=== PATIENT | male | born 1960 | race Caucasian/White ===

== ENCOUNTER 2017-10-22 08:45 | Day surgery (SDC) | payer OTHER, SELFPAY ==
[2017-10-22] VITALS (8 sets, daily range): BP systolic 125–144; BP diastolic 82–101; PULSE 71–83; RESP 12–18; TEMP 36.2–36.8; O2SAT 94–100; BMI 26.6
--- NOTE | 2017-10-22 11:24 | PM.PREOP ---
Pre-operative Note Interval Note Pre-op Check: Yes History & Physical Reviewed by Physician and Yes Exam Performed Changes: No
--- NOTE | 2017-10-22 11:26 | SUR.PREOP ---
Block start time 1120 . Monitoring initiated and maintained throughout procedure. Oxygen and medications given per anesthesiologist instructions. Patient remained stable throughout procedure, no adverse reactions noted. Block end time [].
--- NOTE | 2017-10-22 11:35 | SUR.PREOP ---
Block start time 1120. Monitoring initiated and maintained throughout procedure. Oxygen and medications given per anesthesiologist instructions. Patient remained stable throughout procedure, no adverse reactions noted. Block end time 1135.
[2017-10-22] MEDS: LACTATED RINGERS 1,000 ML 42 ML IV (11:38)
[2017-10-22] MEDS: CEFAZOLIN 2 GM/100 ML FROZ.PIGGY IV (11:44)
--- NOTE | 2017-10-22 12:16 | SUR.OPER ---
Beach chair on padded OR bed. Head on gel donut secured with tape over gauze. Non-operative arm secured <90 degrees abduction on padded arm board. Pillow under knees. Safety belt at thigh. Cloth tape over blanket over lower legs.
[2017-10-22] MEDS: BUPIVACAINE 0.5% W/ EPI (PF) VIAL 30 ML INJ (12:25)
--- NOTE | 2017-10-22 12:32 | PM.PROC.1 ---
Procedures Date/Time Date of procedure: 10/22/17 Time of procedure: 11:25 General Procedure description: Ultrasound guided interscalene brachial plexus nerve block for post op pain control after right shoulder by Dr. Ford. Risk and benefits of procedure discussed with patient. ASA monitoring applied to patient. O2 given via nasal cannula. 2 mg Versed and 50 mcg fentanyl given for procedural sedation. Skin site was prepped with chlorhexidine and allowed to fully dry. Sterile gloves, mask, hat and probe cover were used to maintain sterility. 2% lidocaine and 30ga needle was used to make a small skin wheal at needle insertion site. Under ultrasound guidance, a 21ga 50mm Pajunk needle was directed into the interscalene groove (middle/anterior scalenes) near the brachial plexus. Patient reported no parasthesias. After negative aspiration, 20 mL 0.5% ropivicaine and 10mg dexamethasone were injected around brachial plexus. Patient tolerated procedure well.
--- NOTE | 2017-10-22 13:10 | P.OP_ITS ---
Operative Date/Time/Diagnoses Date of procedure: 10/22/17 Time of procedure: 12:45 Post-op diagnosis: same Procedure & Clinicians Procedure: 1. Open rotator cuff repair of right shoulder with acromioplasty 2. Open biceps tenodesis in the intertubercular groove Same procedure as scheduled: Yes Indications: The patient is a 57-year-old man was had right shoulder pain with evidence of a subscapularis rupture and partial dislocation of the biceps from the intertubercular groove. He has agreed to open repair of these injuries after discussion the risks benefits and alternatives. Risks discussed included but were not limited to: Failure to improve pain or function, stiffness, infection, nerve damage, deep venous thrombosis, pulmonary embolism, stroke, myocardial infarction, permanent paralysis and . Surgeon: Joe Ford Pressure Dispatcher: Adriana Rowe Click Yes if Unassisted: No Anesthesia Type: General, Peripheral nerve block and Local Operative Notes Findings: Tearing of the upper half of the subscapularis tendon with dislocation of the biceps from the intertubercular groove. The supraspinatus did not appear to have significant tendon damage. Closure Type: primary Specimen(s): none sent Implants & Drains: One Mitek Healix BR 5.5 mm anchor Applied: implant(s) Estimated Blood Loss (mL): 10 Blood products transfused: none Procedure in detail: Patient was seen in the preoperative area where he identified his right shoulder as the operative site this was marked with my initials. He received preoperative antibiotics and underwent an interscalene block for postoperative pain control. He was then taken to the operating room placed on the operating room table in supine position where he underwent induction of a general anesthetic. He was repositioned in the ?beach chair? position and a bump was placed to protracted scapula. All pressure points were well padded and care was taken not to hyperextend the neck or the cause traction on the sciatic nerves. The right arm was prepared with fingertips to the base and neck with ChloraPrep in the usual fashion drape through sterile drapes. The subcutaneous landmarks were outlined on the skin with a marking pen. Incision site was selected and this area was infiltrated with 0.5% Marcaine with epinephrine for pain control and hemostasis. Subcutaneous flaps were raised after the incision. I measured from the tip of the acromion 5 cm distally and placed a suture in the anterior raphe of the deltoid to prevent propagation into the axillary nerve. The deltoid was then split in line with its fibers. An acromioplasty was performed due to the type 2 acromion with lateral down slope that was evident. The intertubercular groove was palpated and opened, carrying this into the rotator interval. The biceps tendon was identified and brought back into the groove. It was amputated from its insertion on the supraglenoid tubercle and tenodesed over the remaining subscapularis tendon by suturing it to the surrounding tissue and itself with # 2 Tycron. The upper portion of the lesser tuberosity was then debrided to bleeding bone. I carefully inspected the leading edge of the supraspinatus and there did not appear to be enough separation to merit repair. A suture anchor was placed in the upper edge of the lesser tuberosity and the sutures from this placed through the subscapularis tendon to advance it to its insertion. The subscapularis was also sutured to the leading edge of the supraspinatus to close the rotator interval using a#2 Tycron. At this point the wound was copiously irrigated. The deltoid split was reapproximated using running and interrupted 0 Vicryl. Subcutaneous layer was closed with interrupted 3 O Vicryl the skin with a running 4 0 Monocryl suture and Steri-Strips. Dressing sterile 4x4s, an ABD and adhesive dressing were applied. Patient's arm was placed in a sling and he was transferred to the recovery room in good condition having tolerated the procedure well. Complications: none Condition: stable Disposition: PACU Plan for aftercare: The patient will be maintained on a standard subscapularis repair protocol. Initially he will be limited to keeping his hand in front of his body with passive range of motion only. At 6 weeks he will be advanced to active range of motion. His range of motion parameters will be advanced according to protocol through physical therapy.
--- NOTE | 2017-10-22 13:32 | SUR.PHASEI ---
stable pacu stay, to room 202
--- NOTE | 2017-10-22 13:32 | SUR.PHASEI ---
Addendum entered by Jennifer Wilson R.N. 10/22/17 13:33: dr darron sanderson. Original Note: small skin tear to l upper cheek. bacitracin applied.
--- NOTE | 2017-10-22 15:51 | PT.IIE ---
Current Diagnoses Complete rotator cuff tear or rupture of right shoulder, not specified as traumatic (10/22/17) Bicipital tendinitis, right shoulder (10/22/17) Surgery Performed Operation Date: 10/22/17 10:45 Actual Procedures p Rotator Cuff Repair w/Acromioplasty- Open(Right) - Joe Ford MD s Biceps Tendon Repair, , with right biceps tenodesis(Right) - Joe Ford MD Medical History (Last Updated 10/14/17 @ 14:16 by Laura Mobley RN) Biceps tendinitis of right upper extremity (Acute) Complete tear of right rotator cuff (Acute) History of headache (Acute) Surgery, elective (Acute) Physical Therapy Inpatient Evaluation/Re-Eval M1 PT/OT-IP Prior Functional Status Start: 10/22/17 15:52 Freq: NEEDED Status: Active Protocol: Document 10/22/17 15:51 DLM (Rec: 10/22/17 16:13 DLM [email or web address]) Medical Review Prior Functional Status Medical History Reviewed Yes Diet/Fluid Consistency Regular Communication WNL Mobility and Gait Independent without device, community distances Activities of Daily Living and IADL's Independent, works active, rides motorcycle Social History Household Members spouse Living Arrangements House Employment Status [employer] Temporary Additional Social History Comment Son is present in room, he had rototor cuff repair in the past and plans to help his father, out-pt PT is planned M2 PT-IP Current Condition Start: 10/22/17 15:52 Freq: NEEDED Status: Active Protocol: Document 10/22/17 15:51 DLM (Rec: 10/22/17 16:13 DLM [email or web address]) Physical Therapy Current Condition Current Condition Evaluation Date 10/22/17 Treatment Diagnosis right rotator cuff tear with open repair Onset Date 10/22/17 Precautions Shoulder Precautions Sling PROM Internal Rotation to Body No External Rotation No Abduction Forward Flexion to 90 degrees Pendulums Weight Bearing Status Weight Bearing Status Non-Weight Bearing M3 PT-IP Subjective Start: 10/22/17 15:52 Freq: NEEDED Status: Active Protocol: Document 10/22/17 15:51 DLM (Rec: 10/22/17 16:13 DLM [email or web address]) Subjective Physical Therapy Visit Type Type Initial Evaluation Visit Start Time 15:25 Visit Stop Time 15:51 Total Visit Minutes 26 Number of MEMORIAL DESIGNER Visits 0 Physical Therapy Visit Comments Patient Comments He is eager to go home, he has ice pack at home Therapy Pain Assessment Pain When Pain Assessed At Rest Pain Present Pain Present Denied Pain M4 PT-IP Mobility and Gait Start: 10/22/17 15:52 Freq: NEEDED Status: Active Protocol: Document 10/22/17 15:51 DL (Rec: 10/22/17 16:13 DLM [email or web address]) PT-Bed Mobility Assessment Rolling Type of Rolling Roll to Right Level of Assist Independent Supine to Sit Supine to Sit Independent Sit to Supine Sit to Supine Independent Scooting Scooting to Edge of Bed Independent PT-Transfer Assessment Sit to and From Stand Sit to and from Stand Independent Equipment Transfer Assistive Device None Orthotic/Prosthetic Devices or Brace: Yes Transfers Transfer Destination Chair Transfer Technique Stand Step Pivot Transfer Ability Level of Assist Independent Gait Assessment Gait Gait Assistance Required: Independent Distance (Feet) (feet) 300 Assistive Devices Assistive Device None Orthotic/Prosthetic Devices or Brace: Yes Gait Deviations General Gait Pattern Within Normal Limits Comments Gait Comments good balance during gait, no light-headedness and no nausea PT-Balance Assessment Sitting Balance and Reactions Static Sitting Balance Ability Normal Dynamic Sitting Balance Ability Normal Standing Balance and Reactions Static Standing Balance Ability Normal Dynamic Standing Balance Ability Good M5 PT-IP Objective Assessments Start: 10/22/17 15:52 Freq: NEEDED Status: Active Protocol: Document 10/22/17 15:51 DLM (Rec: 10/22/17 16:13 DL [email or web address]) Orientation Orientation/Cognition Level of Alertness Alert Orientation Name Age Birthday Month Date Year Day of Week Place Situation Language Function Ability No Deficits Noted Safety Awareness Understands Safety Issues Memory Description No Deficits Noted Gross Range of Motion Upper Extremity ROM Assessment Right Impaired Impairments post-op restictions with pt in sling and UE numb Lower Extremity ROM Assessment Within Functional Limits Strength Upper Extremity Strength Assessment Right Impaired Shoulder no functional use of shoulder post-op with restrictions Elbow no active movement at this time, numb Wrist numb Hand moving hand actively Lower Extremity Strength Assessment Within Functional Limits Coordination Assessment Gross Coordination Gross Coordination WNL Assessment Coordination Comments right UE not tested due to post-op restrictions Sensation Assessment Sensation Gross Sensation Right UE Impaired Light Touch Absent Sensation Description Numbness Comments Sensation Comments post-op with block M6 PT-IP Treatment Start: 10/22/17 15:52 Freq: NEEDED Status: Active Protocol: Document 10/22/17 15:51 DLM (Rec: 10/22/17 16:13 DLM [email or web address]) Physical Therapy Treatment Exercises Exercises Shoulder Pendulums Shoulder Flexion Elbow Flexion/Extension Wrist ROM Hand ROM Other Treatments Other Treatment Performed educated pt and family in all above exercises, pt only performed active hand motions since his UE is still numb, demonstrated all exercises and educated him in his precautions, his Son is present and reports familiar with exercises due to his own rotator cuff sx M7 PT-IP Assessment and Plan Start: 10/22/17 15:52 Freq: NEEDED Status: Active Protocol: Document 10/22/17 15:51 DLM (Rec: 10/22/17 16:13 DLM [email or web address]) PT Summary Assessment and Plan Potential Rehabilitation Potential Excellent Status of Condition at Evaluation Evolving Summary Impairments Pain ROM Strength Progress Towards Goals Safe For Discharge Assessment Summary He tolerated mobility well this visit. He is independent with his gait (no nausea and no light-headedness) Frequency of Treatment Frequency Of Treatment Discharge Treatment Plan Other Recommendations and Next Treatment safe to discharge home today Focus Recommendations To Nursing Amount of Assist Needed Standby Assistance Discharge Recommendations PT Discharge Recommendations Home with Assistance Outpatient PT
--- NOTE | 2017-10-22 17:01 | PC.NURSE ---
DISCHARGE A&Ox3, modified independent with ADLs. pt states slight numbness to fingertips. Denies any pain. RUE in sling. surgical dressing intact. d/c home per Dr. Ford. d/c instructions reviewed with pt and pt's family. pt walked off unit with OUTPATIENT PROGRAM COORDINATOR escort at approximately 1655.
== END 2017-10-22 17:00 | disposition home or self-care (01) ==
LOC: OR 08:49 → AC 13:29
PROVIDERS: PCP Family Medicine; Visit Provider Orthopaedic Surgery
PROC: (CPT 23430; principal; 2017-10-22 10:45)
PROC: (CPT 24341; 2017-10-22 10:45)
DX: M75.121 Complete rotator cuff tear or rupture of right shoulder, not specified as traumatic (principal); M75.21 Bicipital tendinitis, right shoulder; G89.18 Other acute postprocedural pain
CPT/HCPCS: 23430; 23420; 64450; 97161; J0690; J1100; J2250; J2405; J2704; J2795; J3010

== ENCOUNTER 2023-01-08 12:05 | Observation (INO) | payer OTHER, SELFPAY ==
[2017-10-22 13:55] VITALS: BMI 26.6
[2023-01-08] VITALS (14 sets, daily range): BP systolic 120–154; BP diastolic 72–95; PULSE 66–75; RESP 17–24; TEMP 36.1–36.4; O2SAT 92–97; BMI 26.7
--- NOTE | 2023-01-08 12:10 | DI.RAD.S_ITS ---
PROCEDURE: XR CHEST 1V INDICATIONS: chest pain TECHNIQUE: One view of the chest was acquired. COMPARISON: None. FINDINGS: Surgical changes and devices: None. Lungs and pleura: Lungs are clear. No pleural effusions or pneumothorax. Mediastinum: Mediastinal contours appear normal. Heart size is normal. Bones and chest wall: No suspicious bony lesions. Overlying soft tissues appear unremarkable. IMPRESSION: No acute cardiopulmonary process. Dictated by: Tashi Butts M.D. on 01/08/2023 at 13:01 Approved by: Tashi Butts M.D. on 01/08/2023 at 13:01
--- NOTE | 2023-01-08 12:20 | ED.CHESTPAIN ---
HPI - Chest Pain <Shahana Sandoval PA-C - Last Filed: 01/08/23 19:52> General Chief Complaint: Chest Pain Stated Complaint: Chest pain/ Dr ref/ has EKG copy with HX Time Seen by Provider: 01/08/23 12:20 Source: patient Mode of arrival: Family Vehicle Limitations: no limitations History of Present Illness HPI narrative: 62-year-old male with a history of diabetes controlled by metformin with currently normal A1c as well as hypertension per his presents with concern for left-sided chest pain. Patient states that his symptoms initially began yesterday evening and were still present when he went to sleep. At that time he was having some left-sided burning type chest pain that was a 4 or 5/10. He states it feels different than his acid reflux symptoms which he has had in the past. He states he was able to go to sleep and when he woke up in the morning he felt fine so he went to work as usual. However after arriving at work around 730 this morning he realize the pain was coming back and it has been constant ever since. He describes it as a 6/10 constant burning chest pain just to the left of his sternum. He does not feel that anything makes it better or worse. He denies any shortness of breath, shortness of breath with exertion, recent weight gain, nausea, vomiting, abdominal pain, back pain, dizziness, lightheadedness, pain with coughing or breathing and also denies any recent illness. Per his he has a family history of a brother who at age 52 of a cardiac problem. The patient himself has no known heart problems but states he did have a normal stress test at 1 time after he was found to have a murmur. Patient denies any other complaints or concerns he states he was seen in the walk-in clinic at would be where they gave him 324 of aspirin and he then elected to come to this hospital POV though they recommended an ambulance. Related Data Home Medications Medication Instructions Recorded Confirmed losartan 100 mg tablet 100 mg PO DAILY 01/08/23 01/08/23 metformin 500 mg tablet 500 mg PO BID 01/08/23 01/08/23 Allergies Allergy/AdvReac Type Severity Reaction Status Date / Time codeine AdvReac Vomiting Verified 01/08/23 12:20 Review of Systems <Shahana Sandoval PA-C - Last Filed: 01/08/23 19:52> Review of Systems Narrative: See HPI Patient History <Shahana Sandoval PA-C - Last Filed: 01/08/23 19:52> Medical History (Updated 01/08/23 @ 18:06 by Obi Arita DO) DM2 (diabetes mellitus, type 2) HTN (hypertension) History of headache Surgery, elective Biceps tendinitis of right upper extremity Complete tear of right rotator cuff Surgical History H/O shoulder surgery Social History household members: spouse Smoking Status: Former smoker alcohol intake: current Smoking Status: Former smoker tobacco type: cigarettes alcohol intake frequency: 0-2 drinks per day Substance Use Type: does not use Exam <Shahana Sandoval PA-C - Last Filed: 01/08/23 19:52> Narrative Exam Narrative: GENERAL: 62 year old patient appears stated age. Well-developed patient, in mild distress, well-appearing. HEAD: Atraumatic. Normocephalic. EYES: Pupils equal round and reactive. Extraocular motions intact. No scleral icterus. No injection or drainage. ENT: Nose without bleeding, purulent drainage. Airway patent. NECK: Trachea midline. Non tender CARDIOVASCULAR: Regular rate and rhythm without murmurs, gallops, or rubs. RESPIRATORY: Clear to auscultation. Breath sounds equal bilaterally. No wheezes, rales, or rhonchi. GASTROINTESTINAL: Abdomen protuberant, non-tender, nondistended. EXTREMITIES: No edema or joint tenderness. BACK: Nontender without deformity or crepitance. No flank tenderness. NEURO: AOx3. SKIN: No rash or erythema of visible areas Initial Vital Signs Initial Vital Signs: Vital Signs Temperature 97.5 F L 01/08/23 12:13 Pulse Rate 75 01/08/23 12:13 Respiratory Rate 18 01/08/23 12:13 Blood Pressure 137/72 01/08/23 12:13 Pulse Oximetry 97 01/08/23 12:13 Oxygen Delivery Method Room Air 01/08/23 12:13 <Riley Brannon MD - Last Filed: 01/19/23 07:20> Initial Vital Signs Initial Vital Signs: Vital Signs Temperature 97.5 F L 01/08/23 12:13 Pulse Rate 75 01/08/23 12:13 Respiratory Rate 18 01/08/23 12:13 Blood Pressure 137/72 01/08/23 12:13 Pulse Oximetry 97 01/08/23 12:13 Oxygen Delivery Method Room Air 01/08/23 12:13 Course <Shahana Sandoval PA-C - Last Filed: 01/08/23 19:52> Course Course Narrative: Discussed this patient with Dr. Brannon attending physician who does feel we should do a repeat troponin and consult Cardiology. Handing off the patient's care to Dr. Brannon to continue care. Thus far his labs including troponin/CXR and EKG are unremarkable. 1325 Orders Ordered: Discontinued Medications Acetaminophen (Acetaminophen 325 Mg Tablet) 650 mg PO Q6H PRN PRN Reason: Fever/Mild Pain (1-3) Last Admin: 01/08/23 20:14 Dose: 650 mg Documented By: SH Aspirin (Aspirin 81 Mg Chew Tab) 324 mg PO NOW ONE Stop: 01/08/23 12:11 Last Admin: 01/08/23 12:21 Dose: Not Given Documented By: RLS Losartan Potassium (Losartan 50 Mg Tablet) 100 mg PO DAILY [facility] Last Admin: 01/09/23 09:14 Dose: 100 mg Documented By: BT Naproxen (Naproxen 250 Mg Tablet) 500 mg PO BIDWM [facility] Last Admin: 01/09/23 16:34 Dose: Not Given Documented By: Admin: 01/09/23 07:53 Dose: Not Given Documented By: BT Nitroglycerin (Nitroglycerin Oint 1 Inch/Gm Oint...G.) 1 inch TOP NOW ONE Stop: 01/08/23 13:28 Last Admin: 01/08/23 14:49 Dose: 1 inch Documented By: JACEY Ondansetron HCl (Ondansetron 4 Mg/2 Ml Inj) 4 mg IV Q8HR PRN PRN Reason: Nausea And Vomiting Pantoprazole Sodium (Pantoprazole Dr 40 Mg Tablet) 40 mg PO 0700 [facility] Last Admin: 01/09/23 07:52 Dose: 40 mg Documented By: BT Vital Signs Vital signs: Vital Signs - 8 hr 01/08/23 12:13 01/08/23 14:40 01/08/23 14:49 Temperature 97.5 F L Pulse Rate 75 71 66 Respiratory Rate 18 17 Blood Pressure 137/72 140/88 140/88 Pulse Oximetry 97 97 Oxygen Delivery Method Room Air Room Air 01/08/23 15:00 01/08/23 15:30 01/08/23 16:00 Temperature Pulse Rate 69 67 68 Respiratory Rate 20 17 18 Blood Pressure Pulse Oximetry 96 92 95 Oxygen Delivery Method 01/08/23 16:10 01/08/23 16:10 01/08/23 16:30 Temperature Pulse Rate 66 72 Respiratory Rate 22 24 Blood Pressure 120/81 Pulse Oximetry 95 96 Oxygen Delivery Method Room Air 01/08/23 16:30 01/08/23 17:00 01/08/23 17:00 Temperature Pulse Rate 66 Respiratory Rate 21 Blood Pressure 131/79 135/90 Pulse Oximetry 95 Oxygen Delivery Method 01/08/23 17:30 01/08/23 17:31 01/08/23 17:31 Temperature Pulse Rate 72 71 Respiratory Rate 18 24 Blood Pressure 154/95 H Pulse Oximetry 96 95 Oxygen Delivery Method <Riley Brannon MD - Last Filed: 01/19/23 07:20> Orders Ordered: Discontinued Medications Acetaminophen (Acetaminophen 325 Mg Tablet) 650 mg PO Q6H PRN PRN Reason: Fever/Mild Pain (1-3) Last Admin: 01/08/23 20:14 Dose: 650 mg Documented By: LICHA Aspirin (Aspirin 81 Mg Chew Tab) 324 mg PO NOW ONE Stop: 01/08/23 12:11 Last Admin: 01/08/23 12:21 Dose: Not Given Documented By: RLS Losartan Potassium (Losartan 50 Mg Tablet) 100 mg PO DAILY [facility] Last Admin: 01/09/23 09:14 Dose: 100 mg Documented By: BT Naproxen (Naproxen 250 Mg Tablet) 500 mg PO BIDWM [facility] Last Admin: 01/09/23 16:34 Dose: Not Given Documented By: Admin: 01/09/23 07:53 Dose: Not Given Documented By: BT Nitroglycerin (Nitroglycerin Oint 1 Inch/Gm Oint...G.) 1 inch TOP NOW ONE Stop: 01/08/23 13:28 Last Admin: 01/08/23 14:49 Dose: 1 inch Documented By: JACEY Ondansetron HCl (Ondansetron 4 Mg/2 Ml Inj) 4 mg IV Q8HR PRN PRN Reason: Nausea And Vomiting Pantoprazole Sodium (Pantoprazole Dr 40 Mg Tablet) 40 mg PO 0700 [facility] Last Admin: 01/09/23 07:52 Dose: 40 mg Documented By: BT Vital Signs Vital signs: Vital Signs - 8 hr 01/08/23 12:13 01/08/23 14:40 01/08/23 14:49 Temperature 97.5 F L Pulse Rate 75 71 66 Respiratory Rate 18 17 Blood Pressure 137/72 140/88 140/88 Pulse Oximetry 97 97 Oxygen Delivery Method Room Air Room Air 01/08/23 15:00 01/08/23 15:30 01/08/23 16:00 Temperature Pulse Rate 69 67 68 Respiratory Rate 20 17 18 Blood Pressure Pulse Oximetry 96 92 95 Oxygen Delivery Method 01/08/23 16:10 01/08/23 16:10 01/08/23 16:30 Temperature Pulse Rate 66 72 Respiratory Rate 22 24 Blood Pressure 120/81 Pulse Oximetry 95 96 Oxygen Delivery Method Room Air 01/08/23 16:30 01/08/23 17:00 01/08/23 17:00 Temperature Pulse Rate 66 Respiratory Rate 21 Blood Pressure 131/79 135/90 Pulse Oximetry 95 Oxygen Delivery Method 01/08/23 17:30 01/08/23 17:31 01/08/23 17:31 Temperature Pulse Rate 72 71 Respiratory Rate 18 24 Blood Pressure 154/95 H Pulse Oximetry 96 95 Oxygen Delivery Method MDM - Chest Pain <Shahana Sandoval PA-C - Last Filed: 01/08/23 19:52> Lab Data 01/09/23 05:35 01/09/23 05:35 Labs: Lab Results 01/08/23 01/08/23 Range/Units 12:29 14:40 WBC 9.0 (4.5-11.0) X10^3/uL RBC 4.83 (4.5-5.9) X10^6/uL Hgb 16.0 (13.5-17.5) g/dL Hct 44.2 (41-53) % MCV 91.4 (80-100) fL MCH 33.1 (26-34) PG MCHC 36.2 H (30-36) % RDW 13.0 (11.6-14.8) % Plt Count 226 (150-400) X10^3/uL Neut % (Auto) 64.2 (50-75) % Lymph % (Auto) 24.9 L (25-40) % Grand % (Auto) 7.8 (3-14) % Eos % (Auto) 1.9 L (2-4) % Baso % (Auto) 1.2 (0-2) % Neut # (Auto) 5800 (6004-4864) /uL Lymph # (Auto) 2200 (1051-9339) /uL Grand # (Auto) 700 (0-900) /uL Eos # (Auto) 200 (0-450) /uL Baso # (Auto) 100 (0-100) /uL PT 14.6 H (10.1-12.7) SECONDS INR 1.3 (0.9-1.3) APTT 34 (26-36) SECONDS Sodium 136 L (137-145) mmol/L Potassium 4.3 (3.4-5.1) mmol/L Chloride 101 (98-107) mmol/L Carbon Dioxide 25 (22-32) mmol/L BUN 21 H (9-20) mg/dL Creatinine 0.77 (0.66-1.25) mg/dL Estimated GFR > 60 (>60) mL/min BUN/Creatinine Ratio 27.3 H (6-22) Glucose 148 H (80-110) mg/dL Calcium 10.0 (8.4-10.2) mg/dL Magnesium 1.9 (1.6-2.3) mg/dL Total Bilirubin 1.1 (0.2-1.3) mg/dL AST 42 (17-59) IU/L ALT 55 H (<50) IU/L Alkaline Phosphatase 67 (38-126) U/L Total Creatine Kinase 64 70 (55-170) U/L Troponin I < 0.012 < 0.012 (0.01-0.034) ng/mL Total Protein 7.6 (6.3-8.2) g/dL Albumin 4.4 (3.5-5.0) g/dL Globulin 3.2 (1.7-4.1) g/dL Albumin/Globulin Ratio 1.4 (1.0-2.8) Lipase 73 (23-300) U/L Imaging Data Chest x-ray: Radiologist's Impression: [address] [address] XRay Report Signed Patient: Monster Moore MR#: [id number] : 1960 Acct:[id number] Age/Sex: 62 / M Date of Service: 01/08/23 Loc: ED Accession Number: [id number] Procedure: XR chest 1V Ordering Provider: Riley Brannon MD PROCEDURE: XR CHEST 1V INDICATIONS: chest pain TECHNIQUE: One view of the chest was acquired. COMPARISON: None. FINDINGS: Surgical changes and devices: None. Lungs and pleura: Lungs are clear. No pleural effusions or pneumothorax. Mediastinum: Mediastinal contours appear normal. Heart size is normal. Bones and chest wall: No suspicious bony lesions. Overlying soft tissues appear unremarkable. IMPRESSION: No acute cardiopulmonary process. Dictated by: Tashi Butts M.D. on 01/08/2023 at 13:01 Approved by: Tashi Butts M.D. on 01/08/2023 at 13:01 <Riley Brannon MD - Last Filed: 01/19/23 07:20> Lab Data Labs: Lab Results 01/08/23 01/08/23 Range/Units 12:29 14:40 WBC 9.0 (4.5-11.0) X10^3/uL RBC 4.83 (4.5-5.9) X10^6/uL Hgb 16.0 (13.5-17.5) g/dL Hct 44.2 (41-53) % MCV 91.4 (80-100) fL MCH 33.1 (26-34) PG MCHC 36.2 H (30-36) % RDW 13.0 (11.6-14.8) % Plt Count 226 (150-400) X10^3/uL Neut % (Auto) 64.2 (50-75) % Lymph % (Auto) 24.9 L (25-40) % Grand % (Auto) 7.8 (3-14) % Eos % (Auto) 1.9 L (2-4) % Baso % (Auto) 1.2 (0-2) % Neut # (Auto) 5800 (4414-0561) /uL Lymph # (Auto) 2200 (8052-7772) /uL Grand # (Auto) 700 (0-900) /uL Eos # (Auto) 200 (0-450) /uL Baso # (Auto) 100 (0-100) /uL PT 14.6 H (10.1-12.7) SECONDS INR 1.3 (0.9-1.3) APTT 34 (26-36) SECONDS Sodium 136 L (137-145) mmol/L Potassium 4.3 (3.4-5.1) mmol/L Chloride 101 (98-107) mmol/L Carbon Dioxide 25 (22-32) mmol/L BUN 21 H (9-20) mg/dL Creatinine 0.77 (0.66-1.25) mg/dL Estimated GFR > 60 (>60) mL/min BUN/Creatinine Ratio 27.3 H (6-22) Glucose 148 H (80-110) mg/dL Calcium 10.0 (8.4-10.2) mg/dL Magnesium 1.9 (1.6-2.3) mg/dL Total Bilirubin 1.1 (0.2-1.3) mg/dL AST 42 (17-59) IU/L ALT 55 H (<50) IU/L Alkaline Phosphatase 67 (38-126) U/L Total Creatine Kinase 64 70 (55-170) U/L Troponin I < 0.012 < 0.012 (0.01-0.034) ng/mL Total Protein 7.6 (6.3-8.2) g/dL Albumin 4.4 (3.5-5.0) g/dL Globulin 3.2 (1.7-4.1) g/dL Albumin/Globulin Ratio 1.4 (1.0-2.8) Lipase 73 (23-300) U/L [facility] Narrative Medical decision making narrative: 62-year-old male with a history of diabetes controlled by metformin with currently normal A1c as well as hypertension per his presents with concern for left-sided chest pain. Patient states that his symptoms initially began yesterday evening and were still present when he went to sleep. At that time he was having some left-sided burning type chest pain that was a 4 or 5/10. He states it feels different than his acid reflux symptoms which he has had in the past. He states he was able to go to sleep and when he woke up in the morning he felt fine so he went to work as usual. However after arriving at work around 730 this morning he realize the pain was coming back and it has been constant ever since. He describes it as a 6/10 constant burning chest pain just to the left of his sternum. He does not feel that anything makes it better or worse. He denies any shortness of breath, shortness of breath with exertion, recent weight gain, nausea, vomiting, abdominal pain, back pain, dizziness, lightheadedness, pain with coughing or breathing and also denies any recent illness. Per his he has a family history of a brother who at age 52 of a cardiac problem. The patient himself has no known heart problems but states he did have a normal stress test at 1 time after he was found to have a murmur. Patient denies any other complaints or concerns he states he was seen in the walk-in clinic at would be where they gave him 324 of aspirin and he then elected to come to this hospital POV though they recommended an ambulance. After history and exam CBC CMP troponin x2 EKG chest x-ray aspirin nitro paste MDM CC: Chest pain Complicating co-morbidities: Family history of coronary artery disease Data collected from: Patient and spouse Medical records reviewed: No recent visit for this complaint Differential considered: Includes but not limited to STEMI non-STEMI stable angina unstable angina Exam documented above, pertinent findings include: Nontender chest Lab Test results independently reviewed as above. Pertinent findings: WBC 9.0 hemoglobin 16 INR 1.3 sodium 136 potassium 4.3 Troponin less than 0.012 x 2 Independently reviewed EKG normal sinus rhythm rate [address] elevation or depression Imaging studies independently reviewed: Chest x-ray no acute finding Consultations: Spoke with Dr. Arita, he will see patient for evaluation to admit Treatments: Aspirin nitro paste Re-evaluations: Updated patient results. at bedside. Chest pain has improved with nitro paste. Hospitalist to see him for admission Discussion: Appropriate for admission for stress test. Patient has family heart risk factors. Patient did improve with chest pain with nitro paste. Aspirin provided. Hospitalist will see patient for admission. Patient and family agreed for admission. Diagnosis: Chest pain Discharge Plan Departure Patient Disposition: Admitted as Observation Clinical Impression: Chest pain Qualifiers: Chest pain type: unspecified Qualified Code(s): R07.9 - Chest pain, unspecified Admit Date/Time: 01/08/23 17:39 Admit Provider: Obi Arita ED Sign-out <Riley Brannon MD - Last Filed: 01/19/23 07:20> Cosign ED Attending Cosignature Attestation: I was immediately available in the department for consultation. ?This documentation has been reviewed and I agree with assessment and plan. Supervised by Riley Brannon MD
[2023-01-08 12:37] LABS: Add Manual Diff / Slide Review NO; Basophils Absolute Auto 100 /uL (0-100); Basophils Percent Auto 1.2 % (0-2); Eosinophils Absolute Auto 200 /uL (0-450); Eosinophils Percent Auto 1.9 % (2-4); Hematocrit 44.2 % (41-53); Lymphocytes Absolute Auto 2200 /uL (1100-4500); Lymphocytes Percent Auto 24.9 % (25-40); Mean Corpuscular HGB Conc 36.2 % (30-36); Mean Corpuscular Hemoglobin 33.1 PG (26-34); Mean Corpuscular Volume 91.4 fL (80-100); Monocytes Absolute Auto 700 /uL (0-900); Monocytes Percent Auto 7.8 % (3-14); Neutrophils Absolute Auto 5800 /uL (1500-7000); Neutrophils Percent Auto 64.2 % (50-75); Platelet Count 226 X10^3/uL (150-400); Red Blood Cell Count 4.83 X10^6/uL (4.5-5.9)
[2023-01-08 12:51] LABS: INR 1.3 (0.9-1.3); Prothrombin Time 14.6 SECONDS (10.1-12.7)
[2023-01-08 12:54] LABS: Alanine Aminotransferase 55 IU/L (<50); Albumin 4.4 g/dL (3.5-5.0); Albumin Globulin Ratio 1.4 (1.0-2.8); Alkaline Phosphatase 67 U/L (38-126); Aspartate Aminotransferase 42 IU/L (17-59); BUN Creatinine Ratio 27.3 (6-22); Bilirubin Total 1.1 mg/dL (0.2-1.3); Blood Urea Nitrogen 21 mg/dL (9-20); Carbon Dioxide 25 mmol/L (22-32); Chloride 101 mmol/L (98-107); Creatine Kinase 64 U/L (55-170); Estimated Glomerular Filt Rate > 60 mL/min (>60); Globulin 3.2 g/dL (1.7-4.1); Glucose 148 mg/dL (80-110); HEMOLYSIS 16 (0-50); Lipase 73 U/L (23-300); Magnesium 1.9 mg/dL (1.6-2.3); PTT Partial Thromboplastin Tim 34 SECONDS (26-36); Potassium 4.3 mmol/L (3.4-5.1); Sodium 136 mmol/L (137-145); Total Protein 7.6 g/dL (6.3-8.2)
[2023-01-08 13:05] LABS: Troponin I < 0.012 ng/mL (0.01-0.034)
[2023-01-08] MEDS: NITROGLYCERIN OINT 1 INCH/GM OINT...G. TOP (14:49)
[2023-01-08 15:06] LABS: Creatine Kinase 70 U/L (55-170)
[2023-01-08 15:19] LABS: Troponin I < 0.012 ng/mL (0.01-0.034)
--- NOTE | 2023-01-08 17:44 | PM.HP.1 ---
History of Present Illness History of Present Illness Date Patient Seen: 01/08/23 Time Patient Seen: 17:44 Chief complaint: Chest pain/ Dr ref/ has EKG copy with HX Narrative: This is a 62 year old male with PMH of DM and HTN who presented with chest pain. He started to experience a left substernal burning (like a muscle burn) sensation yesterday evening. He has had reflux before and states this was different. There was no radiation of his pain. He states it was a bit worse with movement and improved with rest. He does not note position changes. He did take naproxen this morning, and does most mornings. He has never had a pain like this before. He had a brother that he states of a heart attack at around age 50. His also reports some odd sleep sounds, but has had normal outpatient sleep study. In the emergency room, his vitals were unremarkable except for mild HTN. Labs were unremarkable including negative troponin x2. EKG showed NSR with no acute ischemia. Chest xray was reviewed and showed no acute pathologies by my interpretation. [facility], [facility] Medical History (Updated 01/08/23 @ 18:06 by Obi Arita DO) DM2 (diabetes mellitus, type 2) HTN (hypertension) History of headache Surgery, elective Biceps tendinitis of right upper extremity Complete tear of right rotator cuff Surgical History H/O shoulder surgery Social History household members: spouse Smoking Status: Former smoker alcohol intake: current Meds Home Medications and Allergies Home Medications Medication Instructions Recorded Confirmed Type losartan 100 mg tablet 100 mg PO DAILY 01/08/23 01/08/23 History metformin 500 mg tablet 500 mg PO BID 01/08/23 01/08/23 History Allergies Allergy/AdvReac Type Severity Reaction Status Date / Time codeine AdvReac Vomiting Verified 01/08/23 12:20 Review of Systems Review of Systems Narrative: All other systems reviewed with the patient and are negative unless otherwise stated. Exam Vital Signs (past 8 hours): - 01/08/23 12:13 01/08/23 14:40 01/08/23 14:49 Temperature 97.5 F L Pulse Rate 75 71 66 Respiratory Rate 18 17 Blood Pressure 137/72 140/88 140/88 Pulse Oximetry 97 97 Oxygen Delivery Method Room Air Room Air 01/08/23 15:00 01/08/23 15:30 Temperature Pulse Rate 69 67 Respiratory Rate 20 17 Blood Pressure Pulse Oximetry 96 92 Oxygen Delivery Method Oxygen Delivery Method Room Air Narrative Exam Narrative: General:? Patient is well developed and well nourished, in no distress at this time. HEENT:? Normocephalic, atraumatic, extraocular muscles intact, oral pharynx is clear and mucous membranes are moist. Neck: supple and symmetric, trachea is midline, no cervical adenopathy. Negative for JVD Chest:? Normal AP diameter and contour without kyphoscoliosis, no tachypnea, equal chest rise bilaterally. Lungs:? CTA b/l no wheezing rhonchi or rales. Cardio:?RRR no m/r/g. Abdomen: S NT ND. No CVA tenderness. Musculoskeletal:? Muscle strength and tone are equal within normal limits, no deformity. Extremities: No edema or joint effusions. No cyanosis or clubbing. Skin:? Pale,? Warm to touch,dry and intact without rashes, ulcerations or petechiae.? Neuro:? Alert and orientated x3,? sensation to touch intact in all extremities, no gross deficits noted of cranial nerves. Psych:? Patient has a well-kept appearance, appropriate affect, mental status attitude thought context and judgment are appropriate for age. Objective ECG Impression: NSR without acute ischemia Labs 01/08/23 12:29 01/08/23 12:29 Labs: Laboratory Results - last 24 hr 01/08/23 01/08/23 12:29 14:40 WBC 9.0 RBC 4.83 Hgb 16.0 Hct 44.2 MCV 91.4 MCH 33.1 MCHC 36.2 H RDW 13.0 Plt Count 226 Neut % (Auto) 64.2 Lymph % (Auto) 24.9 L Cole % (Auto) 7.8 Eos % (Auto) 1.9 L Baso % (Auto) 1.2 Neut # (Auto) 5800 Lymph # (Auto) 2200 Cole # (Auto) 700 Eos # (Auto) 200 Baso # (Auto) 100 PT 14.6 H INR 1.3 APTT 34 Sodium 136 L Potassium 4.3 Chloride 101 Carbon Dioxide 25 BUN 21 H Creatinine 0.77 Estimated GFR > 60 BUN/Creatinine Ratio 27.3 H Glucose 148 H Calcium 10.0 Magnesium 1.9 Total Bilirubin 1.1 AST 42 ALT 55 H Alkaline Phosphatase 67 Total Creatine Kinase 64 70 Troponin I < 0.012 < 0.012 Total Protein 7.6 Albumin 4.4 Globulin 3.2 Albumin/Globulin Ratio 1.4 Lipase 73 Assessment & Plan Assessment & Plan narrative: 1. Chest pain, acute, present on admission - Intermediate Risk based on Heart score of 4. Will continue to observe to evaluate for atypical presentation of ACS / unstable angina. Will further risk stratify with treadmill EKG testing. - check TSH, A1c, Lipid panel in the morning. - also possible pericarditis given recent COVID and flu vaccine approx. 3 weeks ago, or GERD. Ordered echo and will start PPI as well. - trail standing naproxen tonight, took a dose this morning. Started PPI as noted above. 2. HTN - continue home losartan, appears controlled at this time. 3. DM - will check A1c, continue carb controlled diet but bas been controlled on metformin once daily. Will follow with morning BMP glucose as he is likely well controlled. Code: Full, surrogate is patient's spouse DVT: low risk and patient ambulatory I have utilized all available immediate resources to obtain, update, or review the patient's current medications.' Additional history was obtained via discussion with ER provider and patient's spouse. I have reviewed patient's labs, EKG, CXR, and documentation personally.
--- NOTE | 2023-01-08 18:14 | DI.NM.S_ITS ---
PROCEDURE: NM EXERCISE TREADMILL NON NUC COMPARISON: None. INDICATIONS: chest pain FINDINGS: The patient exercised for 9 minutes and 29 seconds reaching 87% of maximum predicted heart rate. Appropriate BP response to exercise. Fair exercise tolerance (10.1 METS, CARMENCITA -8%). Non-cardiac chest pain present at rest that didn't increase with exercise. No diagnostic ST changes during exercise or recovery. Rare PVCs present. IMPRESSION: Low risk, probably normal treadmill ECG only stress test with fair exercise capacity (CARMENCITA -8%). Non-cardiac chest pain present at rest that didn't increase with exercise. Dictated by: Jared Wolfe MD on 01/09/2023 at 16:49 Approved by: Jared Wolfe MD on 01/09/2023 at 16:51
--- NOTE | 2023-01-08 18:14 | DI.ECHO.S_ITS ---
[facility] +---------+ : : [address] : : : : [id number] : : : : Phone: [phone]+ Echocardiogram Report + + :Name: MARILY BLAND Study Date: 01/09/2023 Height: 71 in : :[facility] ReadingLocation: Weight: 192 lb : : Gender: Male BSA: 2.1 m2 : :: 1960 Age: 62 yrs BP: 129/94 mmHg: :Reason For Study: Chest Pain : :Ordering Physician: MASON, : :LISY WESTBROOK Performed By: Sydnee Mansfield : :Referring: LISY CUEVAS : + + Interpretation Summary Sinus bradycardia with heart rate 57-62 bpm. Normal LV size and mildly increased wall thickness. Normal wall motion and LV systolic function. Ejection fraction is 60-65%. Normal chamber sizes. No significant valvular abnormalities. Estimated PA systolic pressure is 30 mmHg assuming right atrial pressure of 3 mmHg. Procedure: A two-dimensional transthoracic echocardiogram with color flow and Doppler was performed. The study quality was technically good. There is no prior echocardiogram noted for this patient. The patient was in normal sinus rhythm during the exam. Left Ventricle: The left ventricle is normal in size. The ejection fraction is estimated to be 60-65%. Diastolic parameters suggest probable normal left ventricular diastolic function and normal filling pressures. Right Ventricle: The right ventricle is normal in size and function. Atria: The left atrial size is normal. Right atrial size is normal. There is no Doppler evidence for an interatrial shunt. Mitral Valve: The mitral valve is normal. There is no mitral valve stenosis. There is trace mitral regurgitation. Aortic Valve: The aortic valve is trileaflet. The aortic valve opens well. There is no aortic valve stenosis. No aortic regurgitation is present. Tricuspid Valve: The tricuspid valve is normal. There is no tricuspid stenosis. There is trace tricuspid regurgitation. The right ventricular systolic pressure is estimated to be at least 30 mmHg based on an estimated right atrial pressure of 3 mm Hg. Pulmonic Valve: The pulmonic valve leaflets are thin and pliable; valve motion is normal. There is no pulmonic valvular stenosis. There is trace pulmonic regurgitation. Great Vessels: The aortic root is normal size. The ascending aorta is normal in size. The pulmonary artery is normal size. The IVC is of normal diameter and collapses greater than 50% with a sniff. This suggests a low right atrial pressure of 3 mm Hg. Pericardium/ Pleura There is no pericardial effusion. There is no pleural effusion. MMode/2D Measurements & Calculations LVIDd: 4.4 cm LVOT diam: 2.1 cm LVIDs: 2.1 cm Ao root diam: 2.9 cm FS: 53.0 % asc Aorta Diam: 2.6 cm IVSd: 1.4 cm LVPWd: 1.1 cm LV johnson. diameter/BSA (cm/m^2): 2.1 LV sys. diameter/BSA (cm/m^2): 1.0 LA A2 area: 18.3 cm2 RA long axis: 4.8 cm LA A4 area: 15.5 cm2 RA area: 13.6 cm2 LA length (vol): 4.8 cm RA vol: 32.6 ml LA vol: 50.2 ml RA : 15.8 ml/m2 LA vol index: 24.2 ml/m2 TAPSE: 2.7 cm Doppler Measurements & Calculations Ao V2 max: 132.4 cm/sec LVOT Max Flaco: 92.7 cm/sec Ao V2 mean: 87.9 cm/sec LV V1 max P.4 mmHg Ao max P.0 mmHg LV V1 VTI: 22.1 cm Ao mean P.5 mmHg CAROL ANN(I,D): 2.4 cm2 Ao V2 VTI: 32.3 cm CAROL ANN(V,D): 2.4 cm2 sev ratio: 0.68 CAROL ANN indexed to BSA (cm^2/m^2): 1.1 MV E max flaco: 90.1 cm/sec TR max flaco: 233.0 cm/sec MV A max flaco: 59.6 cm/sec TR max P.7 mmHg MV E/A: 1.5 PA V2 max: 127.9 cm/sec Med Peak E' Flaco: 7.7 cm/sec PA V2 mean: 92.0 cm/sec E/E' med: 11.7 PA mean P.7 mmHg Lat Peak E' Flaco: 8.1 cm/sec PA pr(Accel): 31.9 mmHg E/E' lat: 11.2 E/e' average: 11.4 MV dec time: 0.26 sec SV(LVOT): 76.5 ml Electronically signed by: Amy Vega M.D. on Reading Physician:01/09/2023 05:06 PM
[2023-01-08] MEDS: ACETAMINOPHEN 325 MG TABLET 650 MG PO (20:14)
[2023-01-09] VITALS (9 sets, daily range): BP systolic 116–149; BP diastolic 61–80; PULSE 65–95; RESP 16–19; TEMP 35.9–36.5; O2SAT 97–100
[2023-01-09 06:00] LABS: Add Manual Diff / Slide Review NO; Basophils Absolute Auto 0 /uL (0-100); Basophils Percent Auto 0.3 % (0-2); Eosinophils Absolute Auto 200 /uL (0-450); Eosinophils Percent Auto 2.1 % (2-4); Hematocrit 42.2 % (41-53); Hemoglobin 15.4 g/dL (13.5-17.5); Lymphocytes Absolute Auto 2400 /uL (1100-4500); Lymphocytes Percent Auto 31.3 % (25-40); Mean Corpuscular HGB Conc 36.4 % (30-36); Mean Corpuscular Hemoglobin 33.2 PG (26-34); Mean Corpuscular Volume 91.1 fL (80-100); Monocytes Absolute Auto 800 /uL (0-900); Monocytes Percent Auto 10.6 % (3-14); Neutrophils Absolute Auto 4300 /uL (1500-7000); Neutrophils Percent Auto 55.7 % (50-75); Platelet Count 210 X10^3/uL (150-400); Red Blood Cell Count 4.64 X10^6/uL (4.5-5.9); Red Cell Distribution Width 12.8 % (11.6-14.8); White Blood Cell Count 7.7 X10^3/uL (4.5-11.0)
[2023-01-09 06:07] LABS: Alanine Aminotransferase 47 IU/L (<50); Albumin Globulin Ratio 1.3 (1.0-2.8); Alkaline Phosphatase 66 U/L (38-126); Aspartate Aminotransferase 34 IU/L (17-59); BUN Creatinine Ratio 31.1 (6-22); Bilirubin Total 0.6 mg/dL (0.2-1.3); Blood Urea Nitrogen 23 mg/dL (9-20); Calcium 9.5 mg/dL (8.4-10.2); Carbon Dioxide 22 mmol/L (22-32); Chloride 108 mmol/L (98-107); Cholesterol 177 mg/dL (140-199); Estimated Glomerular Filt Rate > 60 mL/min (>60); Glucose 121 mg/dL (80-110); HDL Cholesterol 20 mg/dL (40-60); Potassium 4.3 mmol/L (3.4-5.1); Sodium 138 mmol/L (137-145)
[2023-01-09 06:14] LABS: HEMOLYSIS 48 (0-50)
[2023-01-09 06:22] LABS: Hemoglobin A1C% w Est Avg Glu 5.7 % (4.0-6.0)
[2023-01-09 06:23] LABS: Triglycerides 728 mg/dL (35-150)
[2023-01-09 06:42] LABS: TSH w/ Reflex to FT4 3.26 uIU/mL (0.47-4.68)
[2023-01-09] MEDS: PANTOPRAZOLE DR 40 MG TABLET PO (07:52)
[2023-01-09] MEDS: LOSARTAN 50 MG TABLET 100 MG PO (09:14)
--- NOTE | 2023-01-09 12:59 | CM.DANOTE ---
DCP Assessment Note Patient is a 62yo M here under the hospitalist care following chest pain. PCP JAROD Eugene in [place] Payer [employer] and self pay FIRE CONTROL ASSISTANT reviewed EMR. Per provider in [facility], echo and stress test today and pending those results, may d/c home. FIRE CONTROL ASSISTANT entered room and introduced self and role. Patient accompanied by spouse at bedside, Shannan ([phone]). Patient is IADLS/drives at baseline. No DME. Reports no needs from CM team at this time. Plan: home with spouse to transport when medically stable. CM team will follow as needed. BRAD Scott Discharge Planning/Care Management CM Discharge Assessment Start: 01/09/23 12:58 Freq: Status: Active Protocol: Document 01/09/23 12:58 (Rec: 01/09/23 12:59 [id number]) Discharge Planning Assessment Assigned Sealer Sander BRAD Collazo DPOA/Assigned Designee Name Shannan ([email or web address]) Contact Information [phone] Advance Directives? No History Provided By Patient,Significant Other, Medical Record Prior Living Arrangements House Household Members spouse Type of transporation used prior to Drives own vehicle admit Independent with ADL's Yes Is patient alert and oriented? Yes Barriers to Discharge No Discharge Plan Home Transportation Arrangement in POV Referrals Initiated None needed Whiteboard Updated in Patient Room with Yes name and ext. # of Sealer Sander Review Status In Process Next Review Type Continued Stay Review
--- NOTE | 2023-01-09 16:38 | PM.DS.1 ---
History of Present Illness History of Present Illness Date Patient Seen: 01/09/23 Time Patient Seen: 16:38 Chief complaint: Chest pain/ Dr ref/ has EKG copy with HX Narrative: This is a 62 year old male with PMH of DM and HTN who presented with chest pain. He started to experience a left substernal burning (like a muscle burn) sensation yesterday evening. He has had reflux before and states this was different. There was no radiation of his pain. He states it was a bit worse with movement and improved with rest. He does not note position changes. He did take naproxen this morning, and does most mornings. He has never had a pain like this before. He had a brother that he states of a heart attack at around age 50. His also reports some odd sleep sounds, but has had normal outpatient sleep study. In the emergency room, his vitals were unremarkable except for mild HTN. Labs were unremarkable including negative troponin x2. EKG showed NSR with no acute ischemia. Chest xray was reviewed and showed no acute pathologies by my interpretation. Discharge Providers Provider Date of admission: 01/08/23 17:39 Discharge Date: 01/09/23 Primary care physician: Charlie Nance MD Discharge provider: Obi Arita DO Summary Hospital Course Discharge Diagnosis: 1. Chest pain 2. DM2 3. HTN, chronic Hospital Course: This is a 62 year old male with PMH of HTN, DM2 admitted with chest pain. He had constant pain that slowly improved over the course of admission. His HEART score was 4, indicative of intermediate risk. Echocardiogram was performed which was unremarkable, showed no evidence of pericarditis or effusion. EKG treadmill testing was deemed low risk by cardiology. He did receive COVID and flu vaccine about 1 month prior, and he did slowly improve with naproxen but given lack of evidence on echocardiogram is it not entirely clear if this represents pericarditis or not, but it is felt more likely musculoskeletal in nature at this time after above evaluation. He was recommended to continue naproxen BID until symptoms resolve, along with 14 day trial of omeprazole as well. No other medication changes are recommended. Time Spent with Patient Time spent: Greater than 30 minutes Exam Vital Signs (past 8 hours): - 01/09/23 09:14 01/09/23 09:59 01/09/23 12:00 Temperature 97 F L Pulse Rate 65 77 Respiratory Rate 19 Blood Pressure 149/61 H 118/80 Pulse Oximetry 98 97 Oxygen Delivery Method Room Air Oxygen Flow Rate 0 0 01/09/23 14:00 Temperature Pulse Rate Respiratory Rate Blood Pressure Pulse Oximetry 97 Oxygen Delivery Method Room Air Oxygen Flow Rate 0 Oxygen Delivery Method Room Air Oxygen Flow Rate 0 Narrative Exam Narrative: General:? Patient is well developed and well nourished, in no distress at this time Musculoskeletal:? Muscle strength and tone are equal within normal limits, no deformity. Extremities: No edema or joint effusions. No cyanosis or clubbing. Neuro:? Alert and orientated x3,? sensation to touch intact in all extremities, no gross deficits noted of cranial nerves. Psych:? Patient has a well-kept appearance, appropriate affect, mental status attitude thought context and judgment are appropriate for age. Objective Labs 01/09/23 05:35 01/09/23 05:35 Labs: Laboratory Results - last 24 hr 01/09/23 05:35 WBC 7.7 RBC 4.64 Hgb 15.4 Hct 42.2 MCV 91.1 MCH 33.2 MCHC 36.4 H RDW 12.8 Plt Count 210 Neut % (Auto) 55.7 Lymph % (Auto) 31.3 Winkler % (Auto) 10.6 Eos % (Auto) 2.1 Baso % (Auto) 0.3 Neut # (Auto) 4300 Lymph # (Auto) 2400 Winkler # (Auto) 800 Eos # (Auto) 200 Baso # (Auto) 0 Sodium 138 Potassium 4.3 Chloride 108 H Carbon Dioxide 22 BUN 23 H Creatinine 0.74 Estimated GFR > 60 BUN/Creatinine Ratio 31.1 H Glucose 121 H Hemoglobin A1c 5.7 Calcium 9.5 Magnesium 2.0 Total Bilirubin 0.6 AST 34 ALT 47 Alkaline Phosphatase 66 Total Protein 7.0 Albumin 4.0 Globulin 3.0 Albumin/Globulin Ratio 1.3 Triglycerides 728 H Cholesterol 177 LDL Cholesterol, Calc TNP HDL Cholesterol 20 L TSH 3.26 [facility] Medical History (Updated 01/08/23 @ 18:06 by Obi Arita DO) DM2 (diabetes mellitus, type 2) HTN (hypertension) History of headache Surgery, elective Biceps tendinitis of right upper extremity Complete tear of right rotator cuff Surgical History H/O shoulder surgery Social History household members: spouse Smoking Status: Former smoker alcohol intake: current Discharge Plan Discharge Plan Patient Disposition: Home Provider Discharge Comment: You were admitted to the hospital with chest pain. Your echocardiogram and stress test was unremarkable. No medication changes are needed. Recommend a couple of days of BID naproxen until your symptoms resolve. If they continue follow up with primary care provider. Also recommend 14 day trial of omeprazole 20 mg, which is best attained over the counter. Discharge orders & Medications Prescriptions: Continued metformin 500 mg tablet 500 mg PO BID losartan 100 mg tablet 100 mg PO DAILY Follow up/Referrals: Lauro Nance MD [Primary Care Provider] - Diet/Activity/Treatments Diet: Diet as Tolerated and Regular Activity: As tolerated, no restrictions. Visit Report/Discharge Packet Instructions: DI for Chest Pain Stand Alone Forms: Patient Portal/API, Stroke Signs & Symptoms Discharge Data Primary Care Provider: Lauro Nance Attending Provider: Obi Arita Admlore Date/Time: 01/08/23 17:39 Quality VTE Deep Vein Thrombosis/Pulmonary Embolism Present on Admission: No
== END 2023-01-09 16:50 | disposition home or self-care (01) ==
LOC: ED 15:53 → AC 17:40
PROVIDERS: Admitting Provider Internal Medicine; Emergency Provider Emergency Medicine; PCP Family Medicine; Referring Provider Emergency Medicine; Visit Provider Internal Medicine
DX: R07.9 Chest pain, unspecified (principal); E11.9 Type 2 diabetes mellitus without complications; Z79.84 Long term (current) use of oral hypoglycemic drugs; I10 Essential (primary) hypertension
CPT/HCPCS: 36415; 71045; 80053; 80061; 82550; 83036; 83690; 83735; 84443; 84484; 85025; 85610; 85730; 93005; 93017; 93306; 99284; G0378